=== PATIENT | female | born 1990 | race African-American/Black ===

== ENCOUNTER 2016-10-22 00:38 | Emergency (ER) | payer MEDICAID ==
[~2016-10-22] VITALS: Ht 165.1 cm; Wt 103.0 kg
[~2016-10-22 00:38] MED LIST: CYCL-36 PO; DICL50 PO
[2016-10-22 00:41] VITALS: BP 138/73; PULSE 96; RESP 16; TEMP 97.9; O2SAT 98
[2016-10-22 01:50] VITALS: BP 116/66; PULSE 78; RESP 18; O2SAT 99
[2016-10-22 02:30] LABS: AUTOMATED NEUTROPHIL # 6.7 TH/MM3 (1.8-7.7); BASOPHIL % 0.4 % (0.0-2.0); EOSINOPHIL # 0.1 TH/MM3 (0-0.4); EOSINOPHIL % 1.2 % (0.0-4.0); HEMATOCRIT 34.4 % (35.0-46.0); HEMO FLAGS DIFF FINAL; LYMPH % 26.6 % (9.0-44.0); LYMPHOCYTE # 2.9 TH/MM3 (1.0-4.8); MEAN CELL VOLUME 85.3 FL (80.0-100.0); MEAN CORPUSCULAR HEMOGLOBIN 28.9 PG (27.0-34.0); MEAN CORPUSCULAR HGB CONC 33.8 % (32.0-36.0); MONO % 9.8 % (0.0-8.0); PLATELET COUNT 319 TH/MM3 (150-450); RED BLOOD COUNT 4.03 MIL/MM3 (4.00-5.30); RED CELL DISTRIBUTION WIDTH 12.9 % (11.6-17.2); WHITE BLOOD COUNT 10.8 TH/MM3 (4.0-11.0)
[2016-10-22] MEDS ORDERED: SODIUM CHLORIDE 0.9% FLUSH 5 ML FLUSH IVF PRN (02:30)
[2016-10-22] MEDS ORDERED: SODIUM CHLOR 0.9% 1000 ML INJ 1,000 ML IV ONE (02:30)
[2016-10-22 02:34] LABS: BLOOD, URINE NEG (NEG); GLUCOSE,URINE NEG (NEG); KETONE, URINE NEG (NEG); MUCUS URINE FEW /lpf (OCC); NITRITE,URINE NEG (NEG); PH, URINE 7.5 (5.0-8.5); SQUAMOUS EPITHELIAL CELL URINE 4 /hpf (0-5); TRANSITIONAL EPI CELLS, URINE <1 /hpf; URINE COLOR YELLOW (YELLW/STRAW)
[2016-10-22 02:46] LABS: ALT (GPT) 20 U/L (10-53); ANION GAP 5 MEQ/L (5-15); AST (GOT) 8 U/L (15-37); BLOOD UREA NITROGEN 10 MG/DL (7-18); CHLORIDE 105 MEQ/L (98-107); GLOMERULAR FILTRATION RATE 88 ML/MIN (>89); POTASSIUM 3.5 MEQ/L (3.5-5.1); SODIUM (NA) 139 MEQ/L (136-145)
[2016-10-22 02:48] LABS: ALKALINE PHOSPHATASE 57 U/L (45-117); TOTAL BILIRUBIN ADULT 0.2 MG/DL (0.2-1.0)
--- NOTE | 2016-10-22 02:54 | PD ---
HPI Chief Complaint: Abdominal Pain Time Seen by Provider: 01:35 Travel History International Travel<30 days: No Contact w/Intl Traveler<30days: No Traveled to known affect area: No History of Present Illness HPI So well 26 year-old woman who presents emergent department complaining of stomach pain for the past 3 days. She is some cough cold since about 5 years ago. She really eat for 2 days. She ate some spaghetti so she started feeling better 3 days ago. Since then she had worsening belly pain. Pain is mostly in her lower abdomen. Her to little bit more and she urinates and when she moves. She doesn't really have any dysuria. No vaginal discharge or vaginal bleeding. She is not sexually active. Her last menstrual cycle was 3 weeks ago was normal. No past medical history. No history of abdominal surgeries. No other complaints. History Past Medical History Medical History: Denies Significant Hx Tetanus Vaccination: Unknown Influenza Vaccination: No LMP: 3 WKS AGO : 2 Para: 2 Social History Alcohol Use: Yes (OCCASIONAL) Tobacco Use: No Allergies-Medications (Allergen,Severity, Reaction): Coded Allergies: No Known Allergies (Verified , 10/22/16) Reported Meds & Prescriptions Reported Meds & Active Scripts Active No Active Prescriptions or Reported Medications Review of Systems Except as stated in HPI: all other systems reviewed are Neg Physical Exam Narrative GENERAL: Well-appearing 26 year-old woman, no acute distress. SKIN: Warm and dry. NECK: Trachea midline. No JVD. CARDIOVASCULAR: Regular rate and rhythm. No murmur appreciated. RESPIRATORY: No accessory muscle use. Clear to auscultation. Breath sounds equal bilaterally. GASTROINTESTINAL: Abdomen is obese, soft, with moderate right lower quadrant tenderness to palpation. No rebound or guarding. MUSCULOSKELETAL: No obvious deformities. No edema. NEUROLOGICAL: Awake and alert. No obvious cranial nerve deficits. Motor grossly within normal limits. Normal speech. PSYCHIATRIC: Appropriate mood and affect; insight and judgment normal. Data Data Last Documented VS Vital Signs Date Time Temp Pulse Resp B/P Pulse Ox O2 Delivery O2 Flow Rate FiO2 10/22/16 01:50 78 18 116/66 99 Room Air 10/22/16 00:41 97.9 Orders Complete Blood Count With Diff (10/22/16 02:18) Comprehensive Metabolic Panel (10/22/16 02:18) Lipase (10/22/16 02:18) Ua Includes Microscopic (10/22/16 02:18) Ct Abd/Pel W Iv Contrast(Rout) (10/22/16 02:18) Iv Access Insert/Monitor (10/22/16 02:18) NPO (10/22/16 02:18) Sodium Chloride 0.9% Flush (Ns Flush) (10/22/16 02:30) Ed Urine Pregnancytest Poc (10/22/16 02:18) Sodium Chlor 0.9% 1000 Ml Inj (Ns 1000 M (10/22/16 02:30) Iohexol 350 Inj (Omnipaque 350 Inj) (10/22/16 03:06) Labs Laboratory Tests Test 10/22/16 10/22/16 02:00 02:20 Urine Color YELLOW Urine Turbidity CLEAR Urine pH 7.5 Urine Specific [place] 1.016 Urine Protein NEG mg/dL Urine Glucose (UA) NEG mg/dL Urine Ketones NEG mg/dL Urine Occult Blood NEG Urine Nitrite NEG Urine Bilirubin NEG Urine Urobilinogen LESS THAN 2.0 MG/DL Urine Leukocyte Esterase NEG Urine RBC 1 /hpf Urine Squamous Epithelial 4 /hpf Cells Urine Transitional Epithelial <1 /hpf Cells Urine Mucus FEW /lpf White Blood Count 10.8 TH/MM3 Red Blood Count 4.03 MIL/MM3 Hemoglobin 11.6 GM/DL Hematocrit 34.4 % Mean Corpuscular Volume 85.3 FL Mean Corpuscular Hemoglobin 28.9 PG Mean Corpuscular Hemoglobin 33.8 % Concent Red Cell Distribution Width 12.9 % Platelet Count 319 TH/MM3 Mean Platelet Volume 7.7 FL Neutrophils (%) (Auto) 62.0 % Lymphocytes (%) (Auto) 26.6 % Monocytes (%) (Auto) 9.8 % Eosinophils (%) (Auto) 1.2 % Basophils (%) (Auto) 0.4 % Neutrophils # (Auto) 6.7 TH/MM3 Lymphocytes # (Auto) 2.9 TH/MM3 Monocytes # (Auto) 1.1 TH/MM3 Eosinophils # (Auto) 0.1 TH/MM3 Basophils # (Auto) 0.0 TH/MM3 CBC Comment DIFF FINAL Differential Comment Sodium Level 139 MEQ/L Potassium Level 3.5 MEQ/L Chloride Level 105 MEQ/L Carbon Dioxide Level 29.0 MEQ/L Anion Gap 5 MEQ/L Blood Urea Nitrogen 10 MG/DL Creatinine 0.92 MG/DL Estimat Glomerular Filtration 88 ML/MIN Rate Random Glucose 96 MG/DL Calcium Level 8.7 MG/DL Total Bilirubin 0.2 MG/DL Aspartate Amino Transf 8 U/L (AST/SGOT) Alanine Aminotransferase 20 U/L (ALT/SGPT) Alkaline Phosphatase 57 U/L Total Protein 8.2 GM/DL Albumin 3.8 GM/DL Lipase 303 U/L [facility] Medical Decision Making Medical Screen Exam Complete: Yes Emergency Medical Condition: Yes Interpretation(s) LABS: CBC unremarkable CMP unremarkable Lipase normal UA unremarkable Differential Diagnosis Enteritis, colitis, appendicitis, dysmenorrhea, , UTI, other Narrative Course Medical decision making the 18 year-old woman presents emergent arm for abdominal discomfort. Symptoms started after she had some cough cold symptoms for a couple days. She has moderate tenderness in the right lower quadrant. No symptoms to suggest GEOMAGNETICIAN pathology. Not currently sexually active. We'll check labs. Patient will need CT imaging to evaluate for appendicitis. Reassess. Diagnosis Primary Impression: Abdominal pain Qualified Code: R10.84 - Generalized abdominal pain Additional Instructions: Use Bentyl as needed for abdominal cramping. Follow-up with your primary doctor in the next 2-4 days if not completely well. Return to the emergency department for any new or worsening symptoms. Med/Other Pt SpecificInfo: Prescription(s) given Scripts Dicyclomine (Bentyl)20 Mg Tab20 Mg PO QID PRN (ABDOMINAL CRAMPING) #20 TAB Prov:Mahesh Quiroz MD 10/22/16 Disposition: 01 DISCHARGE HOME Condition: Stable Mahesh Quiroz MD Oct 22, 2016 02:54
[2016-10-22] MEDS ORDERED: IOHEXOL 350 MG/ML 10 ML VIAL (for RAD DIAG) IV ONE (03:06)
--- NOTE | 2016-10-22 03:30 | RADRPT ---
EXAM DATE/TIME: 10/22/2016 03:02 [place] COMPARISON: No previous studies available for comparison. INDICATIONS : Abdomen pain past 4 days. IV CONTRAST: 96 cc Omnipaque 350 (iohexol) IV ORAL CONTRAST: No oral contrast ingested. RADIATION DOSE: 19.19 CTDIvol (mGy) MEDICAL HISTORY : None SURGICAL HISTORY : Cholecystectomy. ENCOUNTER: Initial ACUITY: 4 - 6 days PAIN SCALE: 6/10 LOCATION: Bilateral abdomen TECHNIQUE: Volumetric scanning of the abdomen and pelvis was performed. Using automated exposure control and ad justment of the mA and/or kV according to patient size, radiation dose was kept as low as reasonably achievable to obtain optimal diagnostic quality images. FINDINGS: LOWER LUNGS: The visualized lower lungs are clear. LIVER: Homogeneous density without lesion. There is no dilation of the biliary tree. No gallbladder, surgi naya removed.. SPLEEN: Normal size without lesion. PANCREAS: Within normal limits. KIDNEYS: Normal in size and shape. There is no mass, stone or hydronephrosis. ADRENAL GLANDS: Within normal limits. VASCULAR: There is no aortic aneurysm. BOWEL/MESENTERY: The stomach, small bowel, and colon demonstrate no acute abnormality. There is no free intraperitone al air or fluid. The appendix is unremarkable. No inflammatory changes. There is stool in the colon. ABDOMINAL WALL: Within normal limits. RETROPERITONEUM: There is no lymphadenopathy. BLADDER: No wall thickening or mass. REPRODUCTIVE: There is a 3 cm right ovarian cyst. No free fluid is seen in the cul-de-sac. The uterus is grossly un remarkable. INGUINAL: There is no lymphadenopathy or hernia. MUSCULOSKELETAL: Within normal limits for patient age. CONCLUSION: 1. 3 cm right ovarian cyst. 2. Otherwise, unremarkable examination. Deng Pulido MD on October 22, 2016 at 3:24 Board Certified Radiologist. This report was verified electronically.
[2016-10-22] MEDS ORDERED: BENT20TA PO (03:38)
== END 2016-10-22 03:55 | disposition home or self-care (01) ==
LOC: NEPE 00:38
DX: R10.84 Generalized abdominal pain (principal); R05 Cough
CPT/HCPCS: 74177; 80053; 81001; 83690; 84703; 85025; 96360; 99284; J7030; Q9967